=== PATIENT | male | born 1950 | race Caucasian/White ===

== ENCOUNTER 2017-07-26 10:34 | Emergency (ER) | payer MEDICARE, MEDICAID ==
[~2017-07-26] VITALS: Ht 172.7 cm; Wt 90.7 kg
[~2017-07-26 10:34] MED LIST: AMOXICOT500 M1 PO; CLINDAMYCIN300 MG PO; DEPAKENE250 MG/5 M PO; DEXTROMETHORPHA PO; DOCUSATE SODIU100 MG PO; Docusate Sodiu100 MG PO; HALDOL 1MG. TABL1 MG PO; HALDOL5 MG/ML PO; LEVAQUIN500 MG PO; LISINOPRIL 20MG20 MG NG; LISINOPRIL 20MG20 MG PO; LORATADINE 10MG10 M1 PO; LOVAZA1 GM PO; MILK OF MA400 MG/51 PO; NAPROSYN 500MG500 MG PO; SEROQUEL 100MG100 MG PO; SEROQUEL100 MG PO; SEROQUEL400 MG PO; SIMVASTATIN20 MG PO; TRICOR 145 MG145 MG PO; TYLENOL325 MG PO; VALPROIC A250 MG/51 OR; ZITHROMAX Z PA250 MG PO
--- NOTE | 2017-07-26 10:53 | Emergency Room Report ---
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 PT DENIES ANY PAIN AT THIS TIME OTHER THAN CHRONIC BACK PAIN THAT HE ADVISES IS NOT NEW. 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 N Clinical Suspician of Infection? N Mental Status: 1 - Regular (Normal Baseline) Sepsis Risk:Low Sepsis Risk Have you (or family members/close friends) recently traveled outside the [place]? N If Yes, where/when: Have you had exposure to infectious disease within the past month? N TB? Other? Specify: Comment The patient is brought in by ambulance due to a fall. He resides at [facility] and was apparently walking to go to the library. He walked across the lawn of a [employer] and was seen to fall on his bottom. He apparently got himself back up but [employer] personnel sat him back down and called the ambulance. EMS reports that on scene he denied any current injury, but stated that he had chronic back pain. He stated that he fell because his shoes are too big and difficulty walking. He denied any recent illness. EMS personnel are familiar with him and they say he is at his baseline. The patient was able to walk to the stretcher for EMS and also walked from the stretcher to the bed in the emergency department without difficulty. The patient repeats the same story noted above to me. ALLERGIES Coded Allergies: No Known Allergies (07/11/16) Home Medications Active Scripts Amoxicillin (Amoxicot) 500 MG PO Q8 #30 CAP Prov: 12/02/14 Reported Medications Simvastatin 20 MG PO QHS Quetiapine Fumarate (Seroquel 400MG) 400 MG PO QHS Loratadine (Loratadine 10MG Tablet) 10 MG PO DAILY Magnesium Hydroxide (Milk Of Magnesia U/D 30ML) 30 ML PO DAILYP PRN CONSTIPATION Acetaminophen (Tylenol) 650 MG PO Q6HP PRN PAIN/FEVER Fenofibrate 145 MG PO QHS LISINOPRIL (Lisinopril) 20 MG PO DAILY OMEGA-3 ACID ETHYL ESTERS (Lovaza) 2 CAP PO BID Docusate Sodium 100 MG PO BID Quetiapine Fumarate (Seroquel) 100 MG PO DAILY VALPROIC ACID ( SODIUM SALT) (Valproic Acid Syrup 250MG/5ML;473ML Bottle) 500 MG OR TID Haloperidol Lactate (Haldol) 5 MG PO Q6PRN GUAIFENESIN/DEXTROMETHORPHAN (Guaifenesin Dm Syrup) 10 ML PO Q4HP History Medical History General CAD? No Angina: No MA: No Hypertension? No Hyperlipidemia? No CHF? No DVT? No PE? No COPD? No Asthma? No Anemia? No GERD? No Gastric ulcers? No GI Bleed? No Hernia? No Thyroid Problems? No Hypothyroidism? No CVA? No Seizures? No Diabetes? No Renal Insuffiency? No End Stage Renal Disease? No UTI? No Stones? No BPH? No GB Disease: No Nephritic Syndrome? No Asplenia? No Hepatitis? No Sickle Cell Disease? No Arthritis? No Migraines? No Cataracts? No Glaucoma? No MRSA? No HIV? No TB? No Anxiety? No Depression? No Cancer? No More? No Additional hx: INFORMATION NOT AVAILABLE Immunization Hx DT/Tetanus Unknown Pneumonia REFUSES Surgical Hx Previous Surgery?N Social History Smoking Hx Smoker: Current Every Day Smoker Tobacco: Yes Type Cigarettes Alcohol Alcohol: No Review of Systems All Other Systems Reviewed and Negative Constitutional denies fever Respiratory denies shortness of breath Cardiovascular denies chest pain Gastrointestinal denies abdominal pain, denies nausea, denies vomiting Musculoskeletal back pain Psychiatric/Neurological denies headache Physical Exam Vital Signs Vital Signs Date Time Temp Pulse Resp B/P Pulse O2 O2 Flow FiO2 Ox Delivery Rate 07/26 1115 98.2 62 14 116/79 95 07/26 1037 98.2 64 14 111/74 92 General Appearance no apparent distress Eye Exam - bilateral eye normal exam, bilateral eye PERRL, bilateral eye EOMI Ear, Nose, Throat hearing grossly normal, normal ENT inspection Neck normal inspection, non-tender, supple, full range of motion Respiratory Status Yes: trachea midline, chest symmetrical, non tender chest. No: respiratory distress. Lung Sounds bilateral: normal breath sounds, lungs clear. Cardiovascular normal exam, regular rate/rhythm, no peripheral edema, no gallop, no JVD, no murmur, no rub, normal peripheral pulses Peripheral Pulses Pulses normal Yes Gastrointestinal normal bowel sounds, normal exam, non tender, soft, no organomegaly Back normal inspection, no CVA tenderness, no vertebral tenderness Extremities non-tender, normal range of motion, normal inspection Neurologic alert, gag writer II-XII nml as tested, normal exam, no motor/sensory deficits Mental status normal mood/affect Skin intact, normal color, warm/dry Medical Decision Making LABS/Meds/Orders Pt receiving controlled substance in ED? No Progress - The patient's mechanism of injury and history noted above do not suggest significant injury, and I find no signs of injury on his physical examination. I do not find indications for radiographic testing or laboratory evaluation at this time. The patient states that he feels fine, would like to go back to [employer]. He requests that we call somebody. He would like a bag for his shoes. He would like a meal. 11:10 AM: Sitting up on the end of the bed, eating a meal. Denies complaints. Departure Departure Disposition DC Home or Self Care(routine) Clinical Impression Primary Impression: Fall from standing Qualifiers: Encounter type: initial encounter Qualified Code: W19.XXXA - Unspecified fall, initial encounter Condition STABLE Referrals Patrice MEYER,Ranjeet Frances (PCP) Patient Instructions How to Prevent Falls ED Critical Care Critical Care No at [id number]
--- NOTE | 2017-07-26 10:53 | Emergency Room Report ---
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 PT DENIES ANY PAIN AT THIS TIME OTHER THAN CHRONIC BACK PAIN THAT HE ADVISES IS NOT NEW. 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 N Clinical Suspician of Infection? N Mental Status: 1 - Regular (Normal Baseline) Sepsis Risk:Low Sepsis Risk Have you (or family members/close friends) recently traveled outside the [place]? N If Yes, where/when: Have you had exposure to infectious disease within the past month? N TB? Other? Specify: Comment The patient is brought in by ambulance due to a fall. He resides at [facility] and was apparently walking to go to the library. He walked across the lawn of a [employer] and was seen to fall on his bottom. He apparently got himself back up but [employer] personnel sat him back down and called the ambulance. EMS reports that on scene he denied any current injury, but stated that he had chronic back pain. He stated that he fell because his shoes are too big and difficulty walking. He denied any recent illness. EMS personnel are familiar with him and they say he is at his baseline. The patient was able to walk to the stretcher for EMS and also walked from the stretcher to the bed in the emergency department without difficulty. The patient repeats the same story noted above to me. ALLERGIES Coded Allergies: No Known Allergies (07/11/16) Home Medications Active Scripts Amoxicillin (Amoxicot) 500 MG PO Q8 #30 CAP Prov: 12/02/14 Reported Medications Simvastatin 20 MG PO QHS Quetiapine Fumarate (Seroquel 400MG) 400 MG PO QHS Loratadine (Loratadine 10MG Tablet) 10 MG PO DAILY Magnesium Hydroxide (Milk Of Magnesia U/D 30ML) 30 ML PO DAILYP PRN CONSTIPATION Acetaminophen (Tylenol) 650 MG PO Q6HP PRN PAIN/FEVER Fenofibrate 145 MG PO QHS LISINOPRIL (Lisinopril) 20 MG PO DAILY OMEGA-3 ACID ETHYL ESTERS (Lovaza) 2 CAP PO BID Docusate Sodium 100 MG PO BID Quetiapine Fumarate (Seroquel) 100 MG PO DAILY VALPROIC ACID ( SODIUM SALT) (Valproic Acid Syrup 250MG/5ML;473ML Bottle) 500 MG OR TID Haloperidol Lactate (Haldol) 5 MG PO Q6PRN GUAIFENESIN/DEXTROMETHORPHAN (Guaifenesin Dm Syrup) 10 ML PO Q4HP History Medical History General CAD? No Angina: No VA: No Hypertension? No Hyperlipidemia? No CHF? No DVT? No PE? No COPD? No Asthma? No Anemia? No GERD? No Gastric ulcers? No GI Bleed? No Hernia? No Thyroid Problems? No Hypothyroidism? No CVA? No Seizures? No Diabetes? No Renal Insuffiency? No End Stage Renal Disease? No UTI? No Stones? No BPH? No GB Disease: No Nephritic Syndrome? No Asplenia? No Hepatitis? No Sickle Cell Disease? No Arthritis? No Migraines? No Cataracts? No Glaucoma? No MRSA? No HIV? No TB? No Anxiety? No Depression? No Cancer? No More? No Additional hx: INFORMATION NOT AVAILABLE Immunization Hx DT/Tetanus Unknown Pneumonia REFUSES Surgical Hx Previous Surgery?N Social History Smoking Hx Smoker: Current Every Day Smoker Tobacco: Yes Type Cigarettes Alcohol Alcohol: No Review of Systems All Other Systems Reviewed and Negative Constitutional denies fever Respiratory denies shortness of breath Cardiovascular denies chest pain Gastrointestinal denies abdominal pain, denies nausea, denies vomiting Musculoskeletal back pain Psychiatric/Neurological denies headache Physical Exam Vital Signs Vital Signs Date Time Temp Pulse Resp B/P Pulse O2 O2 Flow FiO2 Ox Delivery Rate 07/26 1115 98.2 62 14 116/79 95 07/26 1037 98.2 64 14 111/74 92 General Appearance no apparent distress Eye Exam - bilateral eye normal exam, bilateral eye PERRL, bilateral eye EOMI Ear, Nose, Throat hearing grossly normal, normal ENT inspection Neck normal inspection, non-tender, supple, full range of motion Respiratory Status Yes: trachea midline, chest symmetrical, non tender chest. No: respiratory distress. Lung Sounds bilateral: normal breath sounds, lungs clear. Cardiovascular normal exam, regular rate/rhythm, no peripheral edema, no gallop, no JVD, no murmur, no rub, normal peripheral pulses Peripheral Pulses Pulses normal Yes Gastrointestinal normal bowel sounds, normal exam, non tender, soft, no organomegaly Back normal inspection, no CVA tenderness, no vertebral tenderness Extremities non-tender, normal range of motion, normal inspection Neurologic alert, drainman II-XII nml as tested, normal exam, no motor/sensory deficits Mental status normal mood/affect Skin intact, normal color, warm/dry Medical Decision Making LABS/Meds/Orders Pt receiving controlled substance in ED? No Progress - The patient's mechanism of injury and history noted above do not suggest significant injury, and I find no signs of injury on his physical examination. I do not find indications for radiographic testing or laboratory evaluation at this time. The patient states that he feels fine, would like to go back to [employer]. He requests that we call somebody. He would like a bag for his shoes. He would like a meal. 11:10 AM: Sitting up on the end of the bed, eating a meal. Denies complaints. Departure Departure Disposition DC Home or Self Care(routine) Clinical Impression Primary Impression: Fall from standing Qualifiers: Encounter type: initial encounter Qualified Code: W19.XXXA - Unspecified fall, initial encounter Condition STABLE Referrals Patrice MEYER,Ranjeet Frances (PCP) Patient Instructions How to Prevent Falls ED Critical Care Critical Care No at [id number]
[2017-07-26 11:15] VITALS: BP 116/79
== END 2017-07-26 11:15 | disposition home or self-care (01) ==
LOC: ER 10:34
DX: Z04.3 Encounter for examination and observation following other accident (principal); W19.XXXA Unspecified fall, initial encounter

== ENCOUNTER → 2017-08-08 | Outpatient (CLI) | payer MEDICARE, MEDICAID ==
[2017-08-08 12:06] LABS: LYMPH % 50.5 % (10-50)
[2017-08-08 12:17] LABS: HEMOGLOBIN 10.5 g/dL (14.1-18.0)
[2017-08-08 13:06] LABS: BUN 29 mg/dL (7-18)
[2017-08-08 13:09] LABS: GFR (ESTIMATED) 61 ML/MIN (>60)
[2017-08-08 14:53] LABS: NEUTROPHILS 38 % (42-76)
== END ==
LOC: LAB 10:42
PROVIDERS: Emergency Medicine
DX: R00.8 Other abnormalities of heart beat (principal); R33.9 Retention of urine, unspecified; R94.31 Abnormal electrocardiogram [ECG] [EKG]

== ENCOUNTER → 2017-08-08 | Outpatient (CLI) | payer MEDICARE, MEDICAID ==
--- NOTE | 2017-08-08 19:47 | RADIOLOGY REPORT PS360 ---
PROCEDURE: 2-D M-mode and color Doppler study INDICATIONS FOR THE TEST: Chest pain COPD Heart Murmur Tobacco SmokingX Palpitations Fatigue Syncope Edema HypertensionXDiabetes Mellitus Rheumatic Fever SOB REINA Obesity Hyperlipidemia Family History HD Additional History ARRHYTHMIA, MENTALLY HANDICAPPED PATIENT INFORMATION HEIGHT: 68 WEIGHT:188 GENDER: Male B/P:123/80 2-D/M-MODE INTERPRETATION: 2-D MEASUREMENTS OBSERVED VALUES IN CMS Right Ventricular Dimension (RVDd) 2.6 Interventricular Septum (Thickness)(IVsd) 1.7 Left Ventricular Internal Dimensions(LVIDd) 4.4 Left Ventricular Posterior Wall (Thickness)(LVPWd) .9 Aortic Root 3.4 Aortic Cusp Separation 1.7 Left Atrial Dimensions (LAD) 4.2 2D 1. Left atrium is mildly enlarged, left ventricle is normal size, there is mild concentric left ventricular visually estimated ejection fraction is 55% with no obvious regional wall motion abnormality, endocardial surfaces are poorly visualized. 2. The right atrium and right ventricle are normal size and contractility. 3. The aortic valve is thickened and calcified with restriction the leaflet mobility. 4. The mitral and tricuspid valve leaflets are minimally thickened. 5. The pulmonic valve is poorly visualized. 6. No significant pericardial effusion noted. DOPPLER INTERROGATION: 1. The maximum aortic out flow velocity recorded study is 2.94 m/s resulting in a mean gradient across valve of 18 mmHg, this represents mild aortic stenosis, there is no aortic insufficiency. 2. The mitral inflow velocity within normal range, there is no mitral stenosis, there is mild mitral regurgitation, tissue Doppler is inconclusive for diastolic parameters. 3. There is mild tricuspid regurgitation noted, tricuspid and jet velocity insufficient for calculation of the right ventricular systolic pressure. CONCLUSION: 1. Technically difficult study because of the patient's factor and poor acoustic windows endocardial surfaces are poorly visualized. 2. Mildly enlarged left atrium, normal left ventricular size, mild concentric left ventricular hypertrophy present, visually estimated ejection fraction of 55% with no obvious regional wall motion abnormality, diastolic parameters are inconclusive. 3. Thickened and calcified aortic valve, mean gradient across valve of 18 mmHg, this represents mild aortic stenosis. There is no aortic insufficiency. 4. Mild mitral and tricuspid regurgitation. 5. No significant pericardial effusion noted.
--- NOTE | 2017-08-08 20:01 | RADIOLOGY REPORT PS360 ---
US [id number] HISTORY: URINARY INFREQUENCY ORDERING PHYSICIAN: Ranjeet Ibrahim MD PATIENT AGE: 67 years COMPARISON: None FINDINGS: RIGHT KIDNEY:Right kidney measures 12.5 x 6 x 7.4 cm. No hydronephrosis, renal mass, or perinephric fluid collection. LEFT KIDNEY:12 x 5 x 7 cm. No hydronephrosis or solid renal mass. A small cyst is present along the lower pole and 2.5 cm. There is bilateral renal blood flow. IMPRESSION: 2.5 cm left renal cyst otherwise negative bilateral renal ultrasound
--- NOTE | 2017-08-08 20:02 | RADIOLOGY REPORT PS360 ---
US URINARY BLADDER HISTORY: URINARY INFREQUENCY ORDERING PHYSICIAN: Ranjeet Ibrahim MD PATIENT AGE: 67 years COMPARISON: None FINDINGS: Full bladder images show an estimated volume of 233 mL's with no obvious mass apparent area post void volume is 36 mL. IMPRESSION: Mild amount of postvoid residual urine within the urinary bladder
== END ==
LOC: RT 08:45
DX: R94.31 Abnormal electrocardiogram [ECG] [EKG] (principal); R00.8 Other abnormalities of heart beat; R33.9 Retention of urine, unspecified

== ENCOUNTER 2017-09-21 18:34 | Observation (INO) | payer MEDICARE, MEDICAID ==
[~2017-09-21] VITALS: Ht 172.7 cm; Wt 86.4 kg
[2017-09-21 18:36] VITALS: BP 114/61
--- NOTE | 2017-09-21 18:42 | Emergency Room Report ---
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 Clinical Suspician of Infection? Mental Status: Sepsis Risk: Have you (or family members/close friends) recently traveled outside the [place]? If Yes, where/when: Have you had exposure to infectious disease within the past month? TB? Other? Specify: Mr. Agudelo is 67 years old white male who is alert and states due to psychiatric diagnosis. He was sent to psychiatric facility and brought back to days ago after medication adjustment. He has been feeling weak since arrival and started falling. He fell on his RIGHT knee and RIGHT elbow and his back PER [employer] STAFF. By the ambulance to staff he seems more sleepy and groggy which is most likely because of his medications. The patient has no complaint. And responding appropriately. Source patient, RN notes reviewed, EMS, [facility] records, old records Exam Limitations clinical condition ALLERGIES Coded Allergies: No Known Allergies (07/11/16) Home Medications Reported Medications Simvastatin 20 MG PO QHS Quetiapine Fumarate (Seroquel 400MG) 400 MG PO QHS Loratadine (Loratadine 10MG Tablet) 10 MG PO DAILY Magnesium Hydroxide (Milk Of Magnesia U/D 30ML) 30 ML PO DAILYP PRN CONSTIPATION Acetaminophen (Tylenol) 650 MG PO Q6HP PRN PAIN/FEVER Fenofibrate 145 MG PO QHS LISINOPRIL (Lisinopril) 20 MG PO DAILY OMEGA-3 ACID ETHYL ESTERS (Lovaza) 2 CAP PO BID Docusate Sodium 100 MG PO BID Quetiapine Fumarate (Seroquel) 100 MG PO DAILY VALPROIC ACID ( SODIUM SALT) (Valproic Acid Syrup 250MG/5ML;473ML Bottle) 500 MG OR TID Haloperidol Lactate (Haldol) 5 MG PO Q6PRN GUAIFENESIN/DEXTROMETHORPHAN (Guaifenesin Dm Syrup) 10 ML PO Q4HP (Domenic MEYER,[facility]) Cardiac Chest Pain Chest pain indicative of cardiac No Timing/Duration this evening Severity moderate (Patrice MEYER,Anitha Frances) History Medical History General CAD? No Angina: No AL: No Hypertension? No Hyperlipidemia? No CHF? No DVT? No PE? No COPD? No Asthma? No Anemia? No GERD? No Gastric ulcers? No GI Bleed? No Hernia? No Thyroid Problems? No Hypothyroidism? No CVA? No Seizures? No Diabetes? No Renal Insuffiency? No End Stage Renal Disease? No UTI? No Stones? No BPH? No GB Disease: No Nephritic Syndrome? No Asplenia? No Hepatitis? No Sickle Cell Disease? No Arthritis? No Migraines? No Cataracts? No Glaucoma? No MRSA? No HIV? No TB? No Anxiety? No Depression? No Cancer? No More? No Additional hx: INFORMATION NOT AVAILABLE Immunization Hx DT/Tetanus Unknown Pneumonia REFUSES Surgical Hx Previous Surgery?N Social History Alcohol Alcohol: No (Domenic MEYER,Jake) Social History Drugs none (Patrice MEYER,Anitha Frances) Review of Systems All Other Systems Reviewed and Negative Constitutional see HPI, weakness Eyes no symptoms reported ENT no symptoms reported. Respiratory no symptoms reported Cardiovascular no symptoms reported Gastrointestinal no symptoms reported Genitourinary no symptoms reported. Musculoskeletal see HPI, joint pain Skin see HPI (BRUISING) Psychiatric/Neurological no symptoms reported (Domenic MEYER,Jake) Physical Exam Vital Signs Vital Signs Date Time Temp Pulse Resp B/P Pulse O2 O2 Flow FiO2 Ox Delivery Rate 09/21 1836 99.2 58 20 114/61 94 - WBC >12,000 or <4,000 or 10% bands? 2 or more SIRS Criteria Met? B/P: MAP: Creatinine >2.0? UA output<0.5ml/kg/hr for 2 hrs? Platelet count >100,000? Lactate >2.0mmol/1? INR >1.2 or PTT > than 60 sec? Evidence of Organ Dysfunction? Provider documented clinical suspician of infection? Sepsis Criteria Count: Sepsis Risk: General Appearance normal appearance, WD/WN, no apparent distress Eye Exam - bilateral eye normal exam, bilateral eye PERRL, bilateral eye EOMI Ear, Nose, Throat hearing grossly normal, normal ENT inspection Neck normal inspection, non-tender, supple, full range of motion Respiratory Status Yes: trachea midline, chest symmetrical, non tender chest. No: respiratory distress. Lung Sounds bilateral: normal breath sounds, lungs clear. Cardiovascular normal exam, regular rate/rhythm, no peripheral edema, no gallop, no JVD, no murmur, no rub, normal peripheral pulses Peripheral Pulses Pulses normal Yes Gastrointestinal normal bowel sounds, normal exam, non tender, soft, no organomegaly Back normal inspection, no CVA tenderness, no vertebral tenderness Extremities non-tender, normal range of motion, normal inspection, normal capillary refill, no calf tenderness Male Genitalia normal genitalia, normal prostate, no hernia Neurologic alert, glass cut off tender II-XII nml as tested, normal exam, no motor/sensory deficits Reflexes Reflexes normal Yes Mental status normal mood/affect Skin bruising, 2 INCHES AREA OF BRUISING ON THE right POSTERIOR CHEST WALL BELOW THE SCAPULA Lymphatic no adenopathy (Domenic MEYER,[facility]) Medical Decision Making LABS/Meds/Orders Pt receiving controlled substance in ED? No Results/Orders Laboratory Tests 09/21/17 2030: Opiates Screen Pending, Urine Methadone Screen Pending, Barbiturates Pending, Phencyclidine Screen Pending, Amphetamines Screen Pending, Benzodiazepines Screen Pending, Cocaine Screen Pending, Marijuana (THC) Screen Pending, Urine Color Pending, Urine Appearance Pending, Urine pH Pending, Ur Specific Ericson Pending 09/21/172025: Hepatitis A Ab Total Cancelled, Hep Bs Antigen Cancelled, Hep Bs Antibody Cancelled, Hep B Core Total Ab Cancelled, Hepatitis C Antibody Cancelled 09/21/17 2000: Ammonia 130 H 09/21/171824: TSH Pending, Thyroxine (T4) Pending 09/21/171824: Vitamin B12 Pending, Folate Pending 09/21/171824: Sodium 138, Potassium 5.3 H, Chloride 102, Carbon Dioxide 31, BUN 34 H, Creatinine 1.8 H, Estimated Creat Clear 52, Estimated GFR (MDRD) 38, Glucose 105, Calcium 8.8, Total Bilirubin 0.4, AST 37, ALT 22, Alkaline Phosphatase 52, Troponin I < 0.02, Total Protein 6.7, Albumin 2.6 L, Globulin 4.1 H, Albumin/ Globulin Ratio 0.6 L, WBC 7.9, RBC 2.85 L, Hgb 9.4 L, Hct 29.7 L, MCV 104.2 H, RDW 15.0, Plt Count 198, MPV 8.3, Gran % 39.5, Gran # 3.1, Lymphocytes % 46.9 , Monocytes % 10.0 H, Eosinophils % 3.0, Basophils % 0.6, Lymphocytes # 3.7, Monocytes # 0.8, Eosinophils # 0.2, Basophils # 0.1, PUBS MCHC 31.6 L, MCH 32.9 H, Valproic Acid 77.8 Current Medication Orders Sig/Joanna Start time Last Medication Dose Route Stop Time Status Admin Sodium Chloride 1,000 ML .STK-MED ONE 09/21 1855 DC IV Sodium Chloride 1,000 ML .Q1H1M 09/21 1845 DC 09/21 IV 09/21 Sodium Chloride 10 ML PRN PRN 09/21 1845 AC IV 09/22 1845 Orders Procedure Date/time Status DIET-NOTHING BY MOUTH 09/22 B Active Decision to admit 09/21 2038 Active HEPATITIS B PROFILE 09/21 2026 Active THYROID STIMULATING HORMONE 09/21 2019 Active THYROXINE (T4) 09/21 2019 Active FOLIC ACID (FOLATE, SERUM) 09/21 2019 Active VITAMIN B12 09/21 2019 Active AMMONIA 09/[address] HEAD W/O CONTRAST 09/[address] CERVICAL SPINE W/O CONT. 09/21 1856 Active ELECTROCARDIOGRAM REQUEST 09/21 1846 Active VALPROIC ACID (DEPAKENE) 09/21 1846 Complete URINALYSIS/COMPLETE 09/21 1846 Active TROPONIN I 09/21 1846 Complete DRUG ABUSE SCREEN (10) 09/21 1846 Active CBC WITH AUTO DIFF 09/21 1846 Complete CHEM 12 PROFILE 09/[address] HEAD REQ 09/[address] SCAN REQ 09/21 1844 Complete PELVIS AP ONLY 09/21 1844 Active KNEE-3 VIEWS-RT 09/21 1844 Active ELBOW-RT-3 VIEWS 09/21 1844 Active 12 LEAD EKG-BESSON (INITIAL) 09/21 UNK Active CM/EKG CM/EKG EKG rate, NSR, rhythm, normal QRS, normal MD Comments Normal sinus rhythm 59/m baseline artifact nonspecific ST segment changes in aVF no acute XRAY/CT/US XRAY/CT/US XRAY chest, knee, upper arm XR interpretation by reviewed by me Comment NO FX. (Jake Sheth MD) Departure Departure Time of Disposition 1999 Disposition Still a Patient Condition STABLE Referrals Patrice MEYER,Ranjeet Frances (Family) Additional Instructions I PLACED HIM IN A HRAD COLLAR. THE DEPAKOTE LEVEL WAS WNL LIMITS. ALSO HE HAD ANEGATICE CARDIAC ENZYMES. PENDING REMIANING LABS, INCLUSDING UA, AMMONIA AND CT REPORTS FOR REEVALUTION AND DISPOSITION.. Discharge Counseling Counseled pt/family regarding diagnosis, test results, home care, follow up needs ED Critical Care Critical Care No If Critical Care minutes are documented, the time involved in the performance of seperately reportable procedures was not counted toward critical care time documented. I directly delivered medical care to this critically ill and/or injured patient. Timely evaluation and treatment was necessary to address the significant organ system(s) dysfunction present in this patient. (Jake Sheth MD) Departure Clinical Impression Primary Impression: Hyperammonemia Secondary Impressions: Anemia Qualifiers: Anemia type: unspecified type Qualified Code: D64.9 - Anemia, unspecified Contusion of chest wall with intact skin Falls Hyperkalemia Neck pain, acute Renal insufficiency Weakness (Anitha Ibrahim MD) at 2003 at 2044
[2017-09-21 18:53] LABS: LYMPH # 3.7 K/mm3 (0.7-4.5); LYMPH % 46.9 % (10-50)
[2017-09-21 18:56] LABS: HEMOGLOBIN 9.4 g/dL (14.1-18.0)
--- OUTSIDE RECORDS SUMMARY | 2017-09-21 19:00 | External Medical Summary Rpt | CCD ---
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 166 50-200 complet ED 013 ML/MIN ed CREATIN 05:32 INE CLEARAN CE GFR 137 Greater complet (ESTIMA 013 ML/MIN than ed SHERRIE) 05:32 60 Sodium 132 136-145 complet SerPl-s 013 mmoL/L ed Cnc 05:32 Potassi 05-22-2 4.9 3.5-5.1 complet um 013 mmoL/L ed SerPl-s 05:32 Cnc Chlorid 03-20- 98 98-107 complet e 013 mmoL/L ed SerPl-s 05:32 Cnc CO2 03-20-2 29 21.0-32 complet SerPl-s 013 mmoL/L .0 ed Cnc 05:32 Calcium 03-20-2 8.0 8.5-10. complet 013 mg/dL 1 ed SerPl-m 05:32 Cnc CBC with AUTO DIFF (03-20-2013 05:32) WBC # 05-22-2 13.8 4.8-10. complet Bld 013 K/MM3 8 ed Auto 05:32 RBC # 22-2 4.31 4.6-6.2 complet Bld 013 M/mm3 ed Auto 05:32 Hgb 03-20-2 13.1 14.1-18 complet Bld-mCn 013 g/dL .0 ed c 05:32 Hct Fr 39.8 % 42.0-52 complet Bld 013 .0 ed 05:32 MCV RBC 03-20-2 92.4 fl 82.2-97 complet 013 .8 ed 05:32 MCH RBC 03-20-2 30.5 pg 27-31.2 complet Qn 013 ed Auto 05:32 MEAN 03-20-2 33.0 31.8-35 complet CORPUSC 013 g/dl .4 ed ULAR 05:32 HGB CONC RDW RBC 03-20-2 14.5 % 11.5-17 complet Auto 013 .5 ed 05:32 Platele 03-20-2 344 142-424 complet t Bld 013 K/mm3 ed Ql 05:32 Manual MEAN 03-20-2 6.9 fl 7.4-10. complet PLATELE 013 4 ed T 05:32 VOLUME Granulo 03-20-2 68.0 % 37.0-80 complet cytes 013 .0 ed Fr Bld 05:32 Auto LYMPH % 03-20-2 21.1 % 10-50 complet 013 ed 05:32 Monocyt 05-22-2 9.8 % 1.7-9.3 complet es Fr 013 ed Bld 05:32 Auto Eosinop 03-20-2 0.9 % 0.1-12. complet hil Fr 013 0 ed Bld 05:32 Auto Basophi 2 0.3 % 0.1-2.0 complet ls Fr 013 ed Bld 05:32 Auto Granulo 03-20-2 9.4 1.3-8.0 complet cytes # 013 K/mm3 ed Bld 05:32 Auto Lymphoc 2 2.9 0.7-4.5 complet ytes Fr 013 K/mm3 ed Bld 05:32 Auto Monocyt 03-20-2 1.4 0.1-1.0 complet es # 013 K/mm3 ed Bld 05:32 Auto Eosinop 2 0.1 0.0-0.4 complet hil # 013 K/mm3 ed Bld 05:32 Auto Basophi 03-20-2 0.0 0-0.2 complet ls # 013 K/MM3 ed Bld 05:32 Auto Tobramycin Ran [facility] (03-19-2013 22:30) Tobramy 0.9 complet emily Ran 013 ug/mL ed 22:30 SerPl-[facility] ARTERIAL BLOOD GAS (03-19-2013 08:55) ARTERIA 7.36 7.35-7. complet L PH 013 MMOL/L 45 ed 08:55 ARTERIA 55.0 35.0-45 complet L PCO2 013 MMHG .0 ed 08:55 ARTERIA 104.3 80-100 complet L PO2 013 MMHG ed 08:55 ARTERIA 29.9 22.0-26 complet L HCO3 013 MMOL/L .0 ed 08:55 ARTERIA 31.6 23-27 complet L TCO2 013 MMOL/L ed 08:55 Base 4.4 -2.4-+2 complet excess 013 MMOL/L .3 ed BldA-sC 08:55 nc ARTERIA 97.6 % 90-100 complet L O2 013 ed SAT 08:55 OXYGEN 40% complet 013 ed 08:55 Arteria PATIENT complet l 013 UNABLE ed patency 08:55 Wrist a SOURCE RIGHT complet 013 RADIAL ed 08:55 COMPREHENSIVE METABOLIC PANEL (03-19-2013 08:25) Glucose 122 74-106 complet 013 mg/dL ed Bld-mCn 08:25 c BUN 8 mg/dL 7-18 complet Bld-mCn 013 ed c 08:25 Creat 0.6 0.8-1.3 complet SerPl-m 013 mg/dL ed Cnc 08:25 ESTIMAT 172 50-200 complet ED 013 ML/MIN ed CREATIN 08:25 INE CLEARAN CE GFR 137 Greater complet (ESTIMA 013 ML/MIN than ed SHERRIE) 08:25 60 Sodium 128 136-145 complet SerPl-s 013 mmoL/L ed Cnc 08:25 Potassi 4.0 3.5-5.1 complet um 013 mmoL/L ed SerPl-s 08:25 Cnc Chlorid 92 98-107 complet e 013 mmoL/L ed SerPl-s 08:25 Cnc CO2 29 21.0-32 complet SerPl-s 013 mmoL/L .0 ed Cnc 08:25 Calcium 8.2 8.5-10. complet 013 mg/dL 1 ed SerPl-m 08:25 Cnc Prot 7.3 6.4-8.2 complet SerPl-m 013 gm/dL ed Cnc 08:25 Albumin 3.1 3.4-5.0 complet 013 gm/dL ed SerPl-m 08:25 Cnc Globuli 4.2 1.3-3.2 complet n 013 gm/dL ed Ser-mCn 08:25 c Albumin 0.7 UNK 1.1-1.8 complet /Glob 013 ed SerPl-m 08:25 Rto Bilirub 0.1 0.2-1.0 complet 013 mg/dL ed SerPl-m 08:25 Cnc AST 19 U/L 15-37 complet SerPl-c 013 ed Cnc 08:25 ALT 29 U/L 30-65 complet SerPl-c 013 ed Cnc 08:25 ALP 75 U/L 50-136 complet SerPl-c 013 ed Cnc 08:25 CBC with AUTO DIFF (03-19-2013 08:25) WBC # 05-21-2 10.9 4.8-10. complet Bld 013 K/MM3 8 ed Auto 08:25 RBC # 05-21-2 4.37 4.6-6.2 complet Bld 013 M/mm3 ed Auto 08:25 Hgb 05-21-2 13.4 14.1-18 complet Bld-mCn 013 g/dL .0 ed c 08:25 Hct Fr 05-21-2 40.3 % 42.0-52 complet Bld 013 .0 ed 08:25 MCV RBC 05-21-2 92.2 fl 82.2-97 complet 013 .8 ed 08:25 MCH RBC 05-21-2 30.7 pg 27-31.2 complet Qn 013 ed Auto 08:25 MEAN 05-21-2 33.3 31.8-35 complet CORPUSC 013 g/dl .4 ed ULAR 08:25 HGB CONC RDW RBC 05-21-2 14.7 % 11.5-17 complet Auto 013 .5 ed 08:25 Platele 05-21-2 332 142-424 complet t Bld 013 K/mm3 ed Ql 08:25 Manual MEAN 05-21-2 7.1 fl 7.4-10. complet PLATELE 013 4 ed T 08:25 VOLUME Granulo 05-21-2 39.1 % 37.0-80 complet cytes 013 .0 ed Fr Bld 08:25 Auto LYMPH % 05-21-2 45.3 % 10-50 complet 013 ed 08:25 Monocyt 05-21-2 11.0 % 1.7-9.3 complet es Fr 013 ed Bld 08:25 Auto Eosinop 05-21-2 3.8 % 0.1-12. complet hil Fr 013 0 ed Bld 08:25 Auto Basophi 05-21-2 0.8 % 0.1-2.0 complet ls Fr 013 ed Bld 08:25 Auto Granulo 05-21-2 4.3 1.3-8.0 complet cytes # 013 K/mm3 ed Bld 08:25 Auto Lymphoc 05-21-2 4.9 0.7-4.5 complet ytes Fr 013 K/mm3 ed Bld 08:25 Auto Monocyt 05-21-2 1.2 0.1-1.0 complet es # 013 K/mm3 ed Bld 08:25 Auto Eosinop 03-19-2 0.4 0.0-0.4 complet hil # 013 K/mm3 ed Bld 08:25 Auto Basophi 03-19-2 0.1 0-0.2 complet ls # 013 K/MM3 ed Bld 08:25 Auto Encounters Encounter Start End Date Code Location Performer Type Date [facility] - 7 7 [facility] - 6 6 [facility] - 5 5 [facility] CLAIRE La MD (ER) 3 09:45 3 12:15 [facility] Inpatient IMP Leatha Stratton MD (IN) 3 08:07 3 10:15 [facility] - 9 9 [facility]
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
--- OUTSIDE RECORDS SUMMARY | 2017-09-21 19:03 | External Medical Summary Rpt | CCD ---
Demographics Preferred Language Slovenian Marital Status Unknown Tenriism Affiliation Unknown Race Unknown Ethnic Group Unknown Author Author , BLAYNE CISNEROS Address Unknown Phone Immunization Unable to retrieve immunization data due to connection failure with Immunization Registry. Please try again later.
--- OUTSIDE RECORDS SUMMARY | 2017-09-21 19:03 | External Medical Summary Rpt | CCD ---
Demographics Preferred Language Hebrew Marital Status Unknown Mormonism Affiliation Unknown Race Unknown Ethnic Group Unknown Author Author , BLAYNE CISNEROS Address Unknown Phone Immunization Unable to retrieve immunization data due to connection failure with Immunization Registry. Please try again later.
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
[2017-09-21 19:05] LABS: BUN 34 mg/dL (7-18); GFR (ESTIMATED) 38 ML/MIN (>60)
--- NOTE | 2017-09-21 20:21 | RADIOLOGY REPORT PS360 ---
CHEST-AP VIEW ONLY COMPARISON: PA and lateral chest 12/02/2014 HISTORY: Chest wall pain after a fall TECHNIQUE: AP upright chest FINDINGS: This is a somewhat poor inspiration however lung andres are clear of infiltrate. There is borderline cardiomegaly with out evidence of failure. There are degenerative changes in both shoulders which have shown interval progression from the previous study. There is no obvious rib fracture and there is no pneumothorax. IMPRESSION: Borderline cardio megaly, no acute chest pathology noted.
[2017-09-21 20:47] LABS: URINE BILIRUBIN - DIPSTICK NEGATIVE (NEG); URINE BLOOD NEGATIVE (NEG)
[2017-09-21 20:56] LABS: AMPHETAMINES/METAMPHETAMINES NEGATIVE ng/mL (<1000)
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
--- OUTSIDE RECORDS SUMMARY | 2017-09-21 21:09 | External Medical Summary Rpt | CCD ---
Demographics Preferred Language Nigerian Marital Status Unknown Buddhism Affiliation Unknown Race Unknown Ethnic Group Unknown Author Author , BLAYNE CISNEROS Address Unknown Phone Immunization No patient found.
--- OUTSIDE RECORDS SUMMARY | 2017-09-21 21:09 | External Medical Summary Rpt | CCD ---
Demographics Preferred Language Slovenian Marital Status Unknown Evangelical Affiliation Unknown Race Unknown Ethnic Group Unknown Author Author , BLAYNE CISNEROS Address Unknown Phone Immunization No patient found.
[2017-09-21 21:30] VITALS: BP 134/68
[2017-09-21 22:37] VITALS: BP 134/68
[2017-09-22 04:12] VITALS: BP 141/82
--- NOTE | 2017-09-22 07:25 | PHARMACY CLINIC NOTE ---
Patient Demographics Patient Demographics Admission date: 09/21/17 Date: 09/22/17 Time: 0725 Allergies Coded Allergies: No Known Allergies (07/11/16) HEIGHT- FT: 5 IN: 8.00 K.382 VTE General Information Labs: Laboratory Tests 09/21 1825 Hematology Hgb (14.1 - 18.0 g/dL) 9.4 L Hct (42.0 - 52.0 %) 29.7 L Plt Count (142 - 424 K/mm3) 198 Disclaimer The following section includes nursing documentation that has been pulled in for pharmacy review. Patient's VTE score: 1 Patient's VTE Risk: VERY LOW RISK Clinical trial participant? No VTE prophylaxis F [id number] VTE prophylaxis ordered? Yes Type of prophylaxis/treatment: SHERRIE at 0725
[2017-09-22 07:30] LABS: HEMOGLOBIN 10.3 g/dL (14.1-18.0); LYMPH # 3.2 K/mm3 (0.7-4.5); LYMPH % 48.7 % (10-50)
[2017-09-22 07:44] VITALS: BP 141/82
--- NOTE | 2017-09-22 07:55 | Discharge Summary Standard ---
Demographics: Admit date: 09/21/17 Chief complaint: pt with confusion PRIMARY DIAGNOSIS: HYPERAMMONIA Allergies: Coded Allergies: No Known Allergies (07/11/16) History of present illness: History of present illness: [facility] with recent admit for pschy meds - pt with stumbling and falls [facility]- pt with no fever or chest pain Past medical history: Family HX Family Hx Insignificant Yes Immunization HX DT/Tetanus Unknown Flu Refused Pneumonia Refuses TB Test in last year Yes Result Negative General CAD? No Angina: No MS: No Hypertension? No Hyperlipidemia? No CHF? No DVT? No PE? No COPD? No Asthma? No Anemia? No GERD? No Gastric ulcers? No GI Bleed? No Hernia? No Thyroid Problems? No Hypothyroidism? No CVA? No Seizures? No Diabetes? No Renal Insuffiency? No UTI? No Stones? No BPH? No GB Disease: No Nephritic Syndrome? No Asplenia? No Hepatitis? No Sickle Cell Disease? No Arthritis? No Migraines? No Cataracts? No Glaucoma? No MRSA? No HIV? No TB? No Anxiety? No Depression? No Cancer? No More? No Additional hx: INFORMATION NOT AVAILABLE Past Surgical HX Previous Surgery?N Current home meds: Reported Medications Simvastatin 20 MG PO QHS Quetiapine Fumarate (Seroquel 400MG) 400 MG PO QHS Loratadine (Loratadine 10MG Tablet) 10 MG PO DAILY Magnesium Hydroxide (Milk Of Magnesia U/D 30ML) 30 ML PO DAILYP PRN CONSTIPATION Acetaminophen (Tylenol) 650 MG PO Q6HP PRN PAIN/FEVER Fenofibrate 145 MG PO QHS LISINOPRIL (Lisinopril) 20 MG PO DAILY OMEGA-3 ACID ETHYL ESTERS (Lovaza) 2 CAP PO BID Docusate Sodium 100 MG PO BID Quetiapine Fumarate (Seroquel) 100 MG PO DAILY VALPROIC ACID ( SODIUM SALT) (Valproic Acid Syrup 250MG/5ML;473ML Bottle) 500 MG OR TID Haloperidol Lactate (Haldol) 5 MG PO Q6PRN GUAIFENESIN/DEXTROMETHORPHAN (Guaifenesin Dm Syrup) 10 ML PO Q4HP Social Hx: Smoking HX Tobacco No Are you/the child exposed to second-hand smoke: No Alcohol Alcohol: No Hx of Drug Use Drug Use? No Patien't marital status is Patient's support system is good Review of systems: Constitutional No: fever. Eyes No: drainage. Ears, Nose, Mouth, Throat No ear discharge, No epistaxis, No throat pain Respiratory No: cough, shortness of breath, wheezing. Cardiovascular No chest pain, No syncope Gastrointestinal/Abdominal No diarrhea, poor appetite, No vomiting Genitourinary No: dysuria, frequency, hesitancy, hematuria. Musculoskeletal No: back pain, joint pain, joint swelling, neck pain. Skin No: rash. Neurological Yes: see HPI. No: headache, seizure disorder. Psychiatric Yes: no symptoms reported. Exam: Lab data for last 24 hours: Laboratory Tests 09/22/17 0621: Sodium 139, Potassium 4.8, Chloride 102, Carbon Dioxide 32, BUN 28 H, Creatinine 1.2, Estimated Creat Clear 74, Estimated GFR (MDRD) 61, Glucose 106, Calcium 8.5 09/22/17 0621: Ammonia 49, WBC 6.5, RBC 3.16 L, Hgb 10.3 L, Hct 33.5 L, MCV 106.0 H, RDW 14.7, Plt Count 227, MPV 8.5, Gran % 34.6 L, Gran # 2.3, Lymphocytes % 48.7, Monocytes % 13.0 H, Eosinophils % 3.1, Basophils % 0.6, Lymphocytes # 3.2, Monocytes # 0.9, Eosinophils # 0.2, Basophils # 0.0, PUBS MCHC 30.8 L, MCH 32.7 H, Valproic Acid 45.0 L 09/21/17 2030: Opiates Screen NEGATIVE, Urine Methadone Screen NEGATIVE, Barbiturates NEGATIVE, Phencyclidine Screen NEGATIVE, Amphetamines Screen NEGATIVE, Benzodiazepines Screen NEGATIVE, Cocaine Screen NEGATIVE, Marijuana (THC) Screen NEGATIVE, Urine Color YELLOW, Urine Appearance CLEAR, Urine pH 7.5, Ur Specific [place] 1.015, Urine Protein NEGATIVE, Urine Ketones NEGATIVE, Urine Blood NEGATIVE, Urine Nitrate NEGATIVE, Urine Bilirubin NEGATIVE, Urine Urobilinogen 2.0, Ur Leukocyte Esterase NEGATIVE, Urine RBC 3-5, Urine WBC 3-5, Ur Squamous Epith Cells 3-5, Urine Bacteria 1+, Hyaline Casts 5-10, Urine Mucus 1+, Urine Glucose NEGATIVE 11/23/17 2000: Ammonia 130 H 09/21/171824: TSH 3.68, Thyroxine (T4) 2.1 L 09/21/171824: Sodium 138, Potassium 5.3 H, Chloride 102, Carbon Dioxide 31, BUN 34 H, Creatinine 1.8 H, Estimated Creat Clear 52, Estimated GFR (MDRD) 38, Glucose 105, Calcium 8.8, Total Bilirubin 0.4, AST 37, ALT 22, Alkaline Phosphatase 52, Troponin I < 0.02, Total Protein 6.7, Albumin 2.6 L, Globulin 4.1 H, Albumin/ Globulin Ratio 0.6 L, WBC 7.9, RBC 2.85 L, Hgb 9.4 L, Hct 29.7 L, MCV 104.2 H, RDW 15.0, Plt Count 198, MPV 8.3, Gran % 39.5, Gran # 3.1, Lymphocytes % 46.9 , Monocytes % 10.0 H, Eosinophils % 3.0, Basophils % 0.6, Lymphocytes # 3.7, Monocytes # 0.8, Eosinophils # 0.2, Basophils # 0.1, PUBS MCHC 31.6 L, MCH 32.9 H, Valproic Acid 77.8 Admission vital signs: 1ST Vital Signs Result Date Time Pulse Ox 94 09/21 1836 B/P 114/61 09/21 1836 Temp 99.2 09/21 1836 Pulse 58 09/21 1836 Resp 20 09/21 1836 O2 Delivery ROOM AIR 09/21 2130 Exam General appearance: alert, awake Eyes: PERRLA ENT: dry mucous membranes Neck: no JVD Cardiovascular: regular rate & rhythm Respiratory: no respiratory distress ABD: soft Genitourinary: no hematuria Extremities: moves all Musculoskeletal: equal muscle strength Skin: dry 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 Follow up Follow up in office in: 3 DAYS with: Ranjeet Ibrahim MD at [id number]
--- NOTE | 2017-09-22 07:56 | RADIOLOGY REPORT PS360 ---
CT HEAD W/O CONTRAST COMPARISON: Noncontrast CT scan of brain 11/03/2014 HISTORY: Patient fell out of bed, altered mental status TECHNIQUE: Multiaxial scans obtained from base skull to the vertex and were performed without IV contrast. FINDINGS: The base of skull normal except for mild mucoperiosteal thickening of both maxillary sinuses. The mastoids are clear. The basilar cisterns are prominent. There is moderate diffuse ventriculomegaly. The sylvian fissures and cortical sulci are prominent. There are periventricular hypodensities consistent with chronic ischemic white matter changes. There is no bleed and there are no extra-axial fluid collections. The bony calvarium is intact. IMPRESSION: Findings of moderate cortical atrophy and chronic white matter changes, no acute intracranial pathology noted, agree with the [facility] report.
[2017-09-22 08:00] VITALS: BP 143/89
--- NOTE | 2017-09-22 08:21 | RADIOLOGY REPORT PS360 ---
CT CERVICAL SPINE W/O CONT COMPARISON: CT scan cervical spine 11/03/2014 HISTORY: Neck pain after patient following elevated TECHNIQUE: Multiple axial scans of cervical spine were obtained. Sagittal coronal reformats were evaluated as well. FINDINGS: There is normal curvature and alignment. C1-C7 appear intact. There is mild disc space narrowing at the C5-6 level with mild posterior ossific spurring. There is mild bilateral neural foraminal narrowing at C5-6 level secondary to spurring of the uncinate joints. The spinal canal is normal size throughout. The prevertebral soft tissues are normal and the odontoid is normal. IMPRESSION: Mild degenerative disc disease C5-6, no acute cervical spine pathology noted
--- NOTE | 2017-09-22 08:23 | RADIOLOGY REPORT PS360 ---
ELBOW-RT-3 VIEWS COMPARISON: None HISTORY: Right elbow pain after falling TECHNIQUE: AP lateral and oblique views FINDINGS: There is no fracture or dislocation. The soft tissues are normal and there is no abnormal fat pad sign. IMPRESSION: Negative right elbow
--- NOTE | 2017-09-22 08:25 | RADIOLOGY REPORT PS360 ---
KNEE-3 VIEWS-RT COMPARISON: Right knee 06/11/2015 HISTORY: Right knee pain after a fall TECHNIQUE: AP lateral and oblique views FINDINGS: There is minor spurring the tibial spines but there is no significant joint space narrowing. There is mild narrowing of the patellofemoral space. There is no definite effusion. There is minimal atherosclerotic calcification of the popliteal artery. IMPRESSION: Mild degenerative change, no fracture seen
[2017-09-22 13:31] VITALS: BP 143/89
--- NOTE | 2017-09-22 17:43 | RADIOLOGY REPORT PS360 ---
PELVIS AP ONLY COMPARISON: Lumbar spine 07/11/2016 HISTORY: Pelvic pain after a fall TECHNIQUE: AP pelvis FINDINGS: The iliac bones and pubic bones appear intact. The SI joints and symphysis pubis appear normal. There is mild asymmetrical joint space narrowing of both hip joints however both hips and proximal femurs appear intact. IMPRESSION: AP pelvis negative for fracture
[2017-09-23 05:35] LABS: Folate (Folic Acid) 13.5 ng/mL (>3.0)
[2017-09-23 05:35] LABS: HBsAg Screen Negative (Negative); Hep A Ab, IgM Negative (Negative); Hep B Core Ab, IgM Negative (Negative); Hep C Virus Ab <0.1 (0.0-0.9)
== END 2017-09-22 12:20 | disposition home or self-care (01) ==
LOC: ER 18:34 → 2ND 20:52 → ER 20:52 → 2ND 20:52
PROVIDERS: Emergency Medicine
DX: E72.20 Disorder of urea cycle metabolism, unspecified (principal); R41.0 Disorientation, unspecified; Z79.899 Other long term (current) drug therapy
CPT/HCPCS: G0378